=== PATIENT | male | born 1960 | race Caucasian/White ===

== ENCOUNTER 2017-12-16 15:29 | Outpatient (RCR) | payer OTHER ==
[2017-10-22 15:51] VITALS: BP 136/79
--- NOTE | 2017-10-22 18:05 | ONCOLOGY CONSULTATION ---
EVENT DATE: October 22, [address] Evangelist Hall REASON FOR CONSULTATION Evaluation and management of leukocytosis with lymphocytosis and erythrocytosis. HEMATOLOGY HISTORY Patient is a 57-year-old male who is donating his blood nearly every three months since 2013. Patient was found on multiple occasions to have high H and H. He was also having leukocytosis with absolutely lymphocytosis. His lymphocytes were high at 4000 since 2014. Patient denies any constitutional symptoms including fevers, chills, night sweats. His CBC on September 09, 2017 showed white count 16.4, red blood cells 5.84 which is high, hemoglobin 18.5 which is high, hematocrit 51.8 which is high. MCV was normal at 89%. His platelet count was normal at 170,000, but his absolutely lymphocytic count was high at 10.9. PAST MEDICAL HISTORY 1. Bilateral inguinal hernias. 2. Hypertension. 3. Hypercholesterolemia. 4. Seasonal allergies. PAST SURGICAL HISTORY 1. Patient had five back surgeries over the years for disk problem. He has had laminectomy, diskectomy and he has also fusion surgery. 2. Tonsillectomy. SOCIAL HISTORY Patient is single with no children. He works as a assistant property manager. He smokes about a half a pack a day for 25 years. He drinks nearly one drink per week. Denies any abuse of illicit drugs. FAMILY HISTORY Negative for cancer or blood diseases. CURRENT MEDICATIONS 1. Atorvastatin 10 mg daily. 2. Hydrochlorothiazide 12.5 mg daily. 3. Benazepril 40 mg daily. 4. Multivitamin once daily. ALLERGIES No known drug allergies. REVIEW OF SYSTEMS CONSTITUTIONAL: No appetite or weight change. No fever, chills or sweating. No recent infection. HEENT: Ears: No tinnitus or hearing problem. Nose: No nasal discharge or epistaxis. Throat: No sore throat or mouth ulcers. Eyes: No diplopia or visual changes. RESPIRATORY: No shortness of breath. No cough, expectoration or hemoptysis. CARDIOVASCULAR: No chest pain, orthopnea, or paroxysmal nocturnal dyspnea (PND) . No edema. No palpitations. GASTROINTESTINAL: No nausea or vomiting. No diarrhea or constipation. No change in bowel movements. No heartburn or swallowing difficulties. No abdominal pain. No jaundice. No hematemesis, melena or rectal bleeding. GENITOURINARY: No hematuria or dysuria. MUSCULOSKELETAL: The patient has back pain from his back problem and previous surgeries in the past. NEUROLOGICAL: No tingling or numbness in the hands or feet. No headaches or convulsions. HEMATOLOGIC/LYMPHATIC: No bleeding or easy bruising. No weakness or fatigue. No enlarged lymph nodes. SKIN: No skin rash or lumps. PSYCHIATRIC: No anxiety or depression. PHYSICAL EXAMINATION GENERAL: Looks stable. Well-developed, well-nourished, and in no acute distress. VITAL SIGNS: Blood pressure 136/79, pulse 80 per minute, respirations 16 per minute, temperature 98.1, pulse ox 94% on room air. HEENT: Head: Atraumatic. No sinus tenderness to palpation. Eyes: No icterus or conjunctivitis. Mouth and Throat: No oral thrush or mucositis. NECK: Supple. No cervical or supraclavicular lymphadenopathy. LUNGS: Clear to auscultation and percussion bilaterally. HEART: Regular rate and rhythm. No gallops, murmurs, clicks or rubs. ABDOMEN: Soft and lax. No tenderness. No hepatosplenomegaly. No masses. EXTREMITIES: No cyanosis, clubbing or edema. LYMPHATICS: No peripheral lymphadenopathy. NEUROLOGICAL: Conscious, alert and oriented times three. No focal motor or sensory deficits. PSYCHIATRIC: Mood and affect appear normal. SKIN: No skin rash, bruise or purpuric eruption. ASSESSMENT 1. Absolute lymphocytosis documented since 2014. This could be due to an underlying lymphoproliferative disorder like CLL or some sort of low grade lymphoma. Over the years his absolute lymphocytic count increased from 4000 in 2015 and currently it is 10,900 in September 2017. I am planning to proceed with flow cytometry for diagnosis, and if the patient will prove to have CLL/SLL by flow cytometry, I am planning to run his blood for FISH for CLL to know the prognosis of his disease. Patient denies any constitutional symptoms and his platelet count and the hemoglobin are normal. His red blood cells are even above normal. I will see him in two weeks from now after the above tests for further evaluation and management. 2. Erythrocytosis, could be primary or secondary from his smoking. I am planning to run JAK2 mutation analysis and erythropoietin level. JAK2 mutation analysis is positive in 95% of cases of polycythemia vera, while erythropoietin level would be low in polycythemia vera, but high or normal in secondary erythrocytosis. If the patient will prove to have secondary erythrocytosis, I will consider phlebotomy if the hematocrit is above 55%, but if it is due to polycythemia vera, then the target for phlebotomy will be 45%. I explained that to the patient and he is agreeable with the plan of management. The patient currently is donating his blood nearly every three months. PLAN 1. CBC. 2. JAK2 mutation analysis. 3. Erythropoietin level. 4. Flow cytometry of the peripheral blood. 5. Patient to return after the above for further evaluation and management. 6. Patient to contact us for any new concern or complaints. MTDD
[2017-10-26 16:38] LABS: PLATELET COUNT, AUTOMATED 181 K/uL (150-450)
[2017-11-05 15:57] VITALS: BP 121/77
--- NOTE | 2017-11-05 17:47 | ONCOLOGY FOLLOW UP NOTE ---
EVENT DATE: November 05, 2017 DIAGNOSES 1. Chronic lymphocytic leukemia. 2. Secondary erythrocytosis. CHIEF COMPLAINT Patient is here today for followup of his erythrocytosis and lymphocytosis. HEMATOLOGY HISTORY Patient is a 57-year-old male who is donating his blood nearly every three months since 2013. Patient was found on multiple occasions to have high H and H. He was also having leukocytosis with absolutely lymphocytosis. His lymphocytes were high at 4000 since 2014. Patient denies any constitutional symptoms including fevers, chills, night sweats. His CBC on September 09, 2017 showed white count 16.4, red blood cells 5.84 which is high, hemoglobin 18.5 which is high, hematocrit 51.8 which is high. MCV was normal at 89%. His platelet count was normal at 170,000, but his absolutely lymphocytic count was high at 10.9. Flow cytometry of the peripheral blood done on October 23, 2017 came back positive for CD5 positive B-cell lymphoproliferative disorder with phenotype characteristic of chronic lymphocytic leukemia/small lymphocytic lymphoma. JAK2 mutation analysis came back negative for V617F mutation and Exon 12 mutation, while erythropoietin level was normal at 7. HISTORY OF PRESENT ILLNESS Patient is here today for followup of his erythrocytosis and erythrocytosis. He is doing fine currently. He has some urgency of urine. He has lower back pain and he is weak, tired and fatigued. PAST MEDICAL HISTORY 1. Bilateral inguinal hernias. 2. Hypertension. 3. Hypercholesterolemia. 4. Seasonal allergies. PAST SURGICAL HISTORY 1. Patient had five back surgeries over the years for disk problem. He has had laminectomy, diskectomy and he has also fusion surgery. 2. Tonsillectomy. SOCIAL HISTORY Patient is single with no children. He works as a property management supervisor. He smokes about a half a pack a day for 25 years. He drinks nearly one drink per week. Denies any abuse of illicit drugs. FAMILY HISTORY Negative for cancer or blood diseases. CURRENT MEDICATIONS 1. Atorvastatin 10 mg daily. 2. Hydrochlorothiazide 12.5 mg daily. 3. Benazepril 40 mg daily. 4. Multivitamin once daily. ALLERGIES No known drug allergies. REVIEW OF SYSTEMS CONSTITUTIONAL: No appetite or weight change. No fever, chills or sweating. No recent infection. HEENT: Ears: No tinnitus or hearing problem. Nose: No nasal discharge or epistaxis. Throat: No sore throat or mouth ulcers. Eyes: No diplopia or visual changes. RESPIRATORY: No shortness of breath. No cough, expectoration or hemoptysis. CARDIOVASCULAR: No chest pain, orthopnea, or paroxysmal nocturnal dyspnea (PND) . No edema. No palpitations. GASTROINTESTINAL: No nausea or vomiting. No diarrhea or constipation. No change in bowel movements. No heartburn or swallowing difficulties. No abdominal pain. No jaundice. No hematemesis, melena or rectal bleeding. GENITOURINARY: The patient has urgency of urine. MUSCULOSKELETAL: He has lower back pain. NEUROLOGICAL: No tingling or numbness in the hands or feet. No headaches or convulsions. HEMATOLOGIC/LYMPHATIC: No bleeding or easy bruising. He is weak, tired and fatigued. No enlarged lymph nodes. SKIN: No skin rash or lumps. PSYCHIATRIC: No anxiety or depression. PHYSICAL EXAMINATION GENERAL: Looks stable. Well-developed, well-nourished, and in no acute distress. VITAL SIGNS: Blood pressure 121/77, pulse 77 per minute, respirations 16 per minute, temperature 97, pulse ox 95% on room air. HEENT: Head: Atraumatic. No sinus tenderness to palpation. Eyes: No icterus or conjunctivitis. Mouth and Throat: No oral thrush or mucositis. NECK: Supple. No cervical or supraclavicular lymphadenopathy. LUNGS: Clear to auscultation and percussion bilaterally. HEART: Regular rate and rhythm. No gallops, murmurs, clicks or rubs. ABDOMEN: Soft and lax. No tenderness. No hepatosplenomegaly. No masses. EXTREMITIES: No cyanosis, clubbing or edema. LYMPHATICS: No peripheral lymphadenopathy. NEUROLOGICAL: Conscious, alert and oriented times three. No focal motor or sensory deficits. PSYCHIATRIC: Mood and affect appear normal. SKIN: No skin rash, bruise or purpuric eruption. DIAGNOSTIC DATA CBC showed a white count 21.4, hemoglobin 18.6, hematocrit 53.2, platelets 181, 000. Erythropoietin level is 7. JAK2 mutation analysis for V617F mutation and Exon 12 mutation came back negative. Flow cytometry of the peripheral blood came back positive for CD5 positive B-cell lymphoproliferative disorder with phenotype characteristic of chronic lymphocytic leukemia/small lymphocytic lymphoma. ASSESSMENT 1. Chronic lymphocytic leukemia/small lymphocytic lymphoma. Patient presented with lymphocytosis since 2014. Flow cytometry of the peripheral blood done on October 26, 2017 came back positive for CD5 positive B-cell lymphoproliferative disorder with phenotype characteristic of CLL/SLL. I am planning to fun the FISH for CLL to know the prognosis. Given that the patient does have B symptoms , and his hemoglobin and platelet count are within the normal range, I am planning to monitor his blood count every six months. If the patient will double is absolute lymphocytic count in less than six months, I will consider also treatment at that time. I explained that to the patient. The patient is agreeable with the plan of management. 2. Erythrocytosis, most probably secondary in nature due to high altitude and smoking. JAK2 mutation analysis for V617F mutation and Exon 12 mutation came back negative and the erythropoietin level was normal at 7. As his current hematocrit is 53.2%, I am not planning to do a phlebotomy at the moment. I am planning to consider phlebotomy if the hematocrit is above 55%. We are going to monitor his blood count with his visits for CLL. PLAN 1. FISH for CLL. 2. Patient to return in two weeks for further evaluation and management. 3. Consider phlebotomy if the hematocrit is above 55%. 4. Patient to contact us for any new concerns or complaints. [facility]
[2017-11-24 16:14] VITALS: BP 124/74
[~2017-12-16 15:29] MED LIST: ATOR10TA24 PO; BENA40TA53 PO; HYDR-2966 PO; MULT-865 PO; OLM20 PO; TRI40I INTRA-ART; [UNRECOGNIZED DRUG - CODE] INJ
[2017-12-16 15:42] VITALS: BP 120/75
--- NOTE | 2017-12-16 17:54 | ONCOLOGY FOLLOW UP NOTE ---
EVENT DATE: December 16, 2017 DIAGNOSES 1. Chronic lymphocytic leukemia. 2. Secondary erythrocytosis. CHIEF COMPLAINT Patient is here today for followup of his erythrocytosis and lymphocytosis. HEMATOLOGY HISTORY Patient is a 57-year-old male who is donating his blood nearly every three months since 2013. Patient was found on multiple occasions to have high H and H. He was also having leukocytosis with absolute lymphocytosis. His lymphocytes were high at 4000 since 2014. Patient denies any constitutional symptoms including fevers, chills, night sweats. His CBC on September 09, 2017, showed white count 16.4, red blood cells 5.84 which is high, hemoglobin 18.5 which is high, hematocrit 51.8 which is high. MCV was normal at 89%. His platelet count was normal at 170,000, but his absolute lymphocytic count was high at 10.9. Flow cytometry of the peripheral blood done on October 23, 2017, came back positive for CD5 positive B-cell lymphoproliferative disorder with phenotype characteristic of chronic lymphocytic leukemia/small lymphocytic lymphoma. JAK2 mutation analysis came back negative for V617F mutation and exon 12 mutation, while erythropoietin level was normal at 7. FISH for CLL came back positive for trisomy 12, which is considered an intermediate risk category. HISTORY OF PRESENT ILLNESS Patient is here today for followup of his CLL. He is really doing very well currently except for having some bruising. PAST MEDICAL HISTORY 1. Bilateral inguinal hernias. 2. Hypertension. 3. Hypercholesterolemia. 4. Seasonal allergies. PAST SURGICAL HISTORY 1. Patient had five back surgeries over the years for disk problem. He has had laminectomy, diskectomy, and he has also fusion surgery. 2. Tonsillectomy. SOCIAL HISTORY Patient is single with no children. He works as a outside property agent. He smokes about a half a pack a day for 25 years. He drinks nearly one drink per week. Denies any abuse of illicit drugs. FAMILY HISTORY Negative for cancer or blood diseases. CURRENT MEDICATIONS 1. Atorvastatin 10 mg daily. 2. Hydrochlorothiazide 12.5 mg daily. 3. Benazepril 40 mg daily. 4. Multivitamin once daily. ALLERGIES No known drug allergies. REVIEW OF SYSTEMS CONSTITUTIONAL: No appetite or weight change. No fever, chills, or sweating. No recent infection. HEENT: Ears: No tinnitus or hearing problem. Nose: No nasal discharge or epistaxis. Throat: No sore throat or mouth ulcers. Eyes: No diplopia or visual changes. RESPIRATORY: No shortness of breath. No cough, expectoration, or hemoptysis. CARDIOVASCULAR: No chest pain, orthopnea, or paroxysmal nocturnal dyspnea (PND). No edema. No palpitations. GASTROINTESTINAL: No nausea or vomiting. No diarrhea or constipation. No change in bowel movements. No heartburn or swallowing difficulties. No abdominal pain. No jaundice. No hematemesis, melena, or rectal bleeding. GENITOURINARY: The patient has urgency of urine. MUSCULOSKELETAL: He has lower back pain. NEUROLOGICAL: No tingling or numbness in the hands or feet. No headaches or convulsions. HEMATOLOGIC/LYMPHATIC: He bruises easily. He is weak, tired, and fatigued. No enlarged lymph nodes. SKIN: No skin rash or lumps. PSYCHIATRIC: No anxiety or depression. PHYSICAL EXAMINATION GENERAL: Looks stable. Well developed, well nourished, and in no acute distress. VITAL SIGNS: Blood pressure 120/75, pulse 75 per minute, respirations 14 per minute, temperature 97.1, pulse ox 94% on room air. HEENT: Head: Atraumatic. No sinus tenderness to palpation. Eyes: No icterus or conjunctivitis. Mouth and Throat: No oral thrush or mucositis. NECK: Supple. No cervical or supraclavicular lymphadenopathy. LUNGS: Clear to auscultation and percussion bilaterally. HEART: Regular rate and rhythm. No gallops, murmurs, clicks, or rubs. ABDOMEN: Soft and lax. No tenderness. No hepatosplenomegaly. No masses. EXTREMITIES: No cyanosis, clubbing, or edema. LYMPHATICS: No peripheral lymphadenopathy. NEUROLOGICAL: Conscious, alert, and oriented times three. No focal motor or sensory deficits. PSYCHIATRIC: Mood and affect appear normal. SKIN: No skin rash, bruise, or purpuric eruption. DIAGNOSTIC DATA FISH for CLL came back positive for trisomy 12 which is considered intermediate risk. ASSESSMENT 1. Chronic lymphocytic leukemia/small lymphocytic lymphoma. Patient presented with lymphocytosis since 2014. Flow cytometry of the peripheral blood done on October 26, 2017, came back positive for CD5 positive B-cell lymphoproliferative disorder with phenotype characteristic of chronic lymphocytic leukemia/small lymphocytic lymphoma.. FISH for chronic lymphocytic leukemia done on the November came back positive for trisomy 12, which is considered an intermediate risk for chronic lymphocytic leukemia. I had a long time with the patient explaining the FISH result and also about the indications for starting treatment. I am planning to see him again in six months with CBC, chemistry panel, LDH, and uric acid, and the patient was advised to report any B symptoms like drenching night sweats, night fever, or loss of appetite or weight. Other indications for treatment will be doubling of the absolute lymphocytic count within six months or thrombocytopenia less than 100,000 or anemia less than 10 g/dL or big lymph node impinging vital organ. 2. Erythrocytosis, most probably secondary in nature due to high altitude and smoking. JAK2 mutation analysis for V617F mutation and exon 12 mutation came back negative, and the erythropoietin level was normal at 7. His last hematocrit was 53.2%. I will consider phlebotomy if hematocrit is above 55%. PLAN 1. Continued followup. 2. Patient to return in six months with CBC, chem panel, LDH, uric acid. 3. Consider phlebotomy if the hematocrit above 55%. 4. Patient to contact us for any new concerns or complaints. [facility]ED
== END 2017-12-29 09:10 | disposition home or self-care (01) ==
LOC: ONC 15:29
PROVIDERS: ATTEND Internal Medicine Hematology
DX: C91.Z0 Other lymphoid leukemia not having achieved remission (principal); D72.820 Lymphocytosis (symptomatic); D75.1 Secondary polycythemia; I10 Essential (primary) hypertension; E78.00 Pure hypercholesterolemia, unspecified; J30.2 Other seasonal allergic rhinitis; K40.20 Bilateral inguinal hernia, without obstruction or gangrene, not specified as recurrent; F17.210 Nicotine dependence, cigarettes, uncomplicated
CPT/HCPCS: 36415; 81270; 81403; 82668; 85025; 88184; 88185; 88189; 88271; 88275; 88291; 99202; 99212

== ENCOUNTER 2018-06-09 07:40 | Outpatient (RCR) | payer OTHER ==
[2018-06-09 15:18] VITALS: BP 124/82
[2018-06-09 15:46] LABS: PLATELET COUNT, AUTOMATED 181 K/uL (150-450)
[2018-06-09] MEDS ORDERED: TAMS0.4C70 PO (15:53)
--- NOTE | 2018-06-10 03:57 | [facility] ONCOLOGY NOTE ---
EVENT DATE: June 09, 2018 DIAGNOSES 1. Chronic lymphocytic leukemia. 2. Secondary erythrocytosis. CHIEF COMPLAINT Patient is here today for followup of his erythrocytosis and CLL. HEMATOLOGY HISTORY Patient is a 58-year-old male who is donating his blood nearly every three months since 2013. Patient was found on multiple occasions to have high H and H. He was also having leukocytosis with absolute lymphocytosis. His lymphocytes were high at 4000 since 2014. Patient denies any constitutional symptoms including fevers, chills, night sweats. His CBC on September 09, 2017, showed white count 16.4, red blood cells 5.84 which is high, hemoglobin 18.5 which is high, hematocrit 51.8 which is high. MCV was normal at 89%. His platelet count was normal at 170,000, but his absolute lymphocytic count was high at 10.9. Flow cytometry of the peripheral blood done on October 23, 2017, came back positive for CD5 positive B-cell lymphoproliferative disorder with phenotype characteristic of chronic lymphocytic leukemia/small lymphocytic lymphoma. JAK2 mutation analysis came back negative for V617F mutation and exon 12 mutation, while erythropoietin level was normal at 7. FISH for CLL came back positive for trisomy 12, which is considered an intermediate risk category. HISTORY OF PRESENT ILLNESS Patient is here today for followup of his chronic lymphocytic leukemia and erythrocytosis. He is doing fine currently. He has occasional diarrhea. He has some pain in his right shoulder lately. He has also tingling in the right arm, and patient thought this was related to his pain in the right shoulder, but other than that, he is really doing very well and denies any B symptoms. PAST MEDICAL HISTORY 1. Bilateral inguinal hernias. 2. Hypertension. 3. Hypercholesterolemia. 4. Seasonal allergies. PAST SURGICAL HISTORY 1. Patient had five back surgeries over the years for disk problem. He has had laminectomy, diskectomy, and he has also fusion surgery. 2. Tonsillectomy. SOCIAL HISTORY Patient is single with no children. He works as a property management supervisor. He smokes about a half a pack a day for 25 years. He drinks nearly one drink per week. Denies any abuse of illicit drugs. FAMILY HISTORY Negative for cancer or blood diseases. CURRENT MEDICATIONS 1. Atorvastatin 10 mg daily. 2. Hydrochlorothiazide 12.5 mg daily. 3. Benazepril 40 mg daily. 4. Multivitamin once daily. ALLERGIES No known drug allergies. REVIEW OF SYSTEMS CONSTITUTIONAL: No appetite or weight change. No fever, chills or sweating. No recent infection. HEENT: Ears: No tinnitus or hearing problem. Nose: No nasal discharge or epistaxis. Throat: No sore throat or mouth ulcers. Eyes: No diplopia or visual changes. RESPIRATORY: No shortness of breath. No cough, expectoration or hemoptysis. CARDIOVASCULAR: No chest pain, orthopnea, or paroxysmal nocturnal dyspnea (PND). No edema. No palpitations. GASTROINTESTINAL: Patient has occasional diarrhea. GENITOURINARY: No hematuria or dysuria. MUSCULOSKELETAL: He has pain in the right shoulder. NEUROLOGICAL: He has tingling in the right arm area. HEMATOLOGIC/LYMPHATIC: No bleeding or easy bruising. No weakness or fatigued. No enlarged lymph nodes. SKIN: No skin rash or lumps. PSYCHIATRIC: No anxiety or depression. PHYSICAL EXAMINATION GENERAL: Looks stable. Well-developed, well-nourished, and in no acute distress. VITAL SIGNS: Blood pressure 124/82, pulse 74 per minute, respirations 18 per minute, temperature 98.2, pulse oximetry 94% on room air. HEENT: Head: Atraumatic. No sinus tenderness to palpation. Eyes: No icterus or conjunctivitis. Mouth and throat: No oral thrush or mucositis. NECK: Supple. No cervical or supraclavicular lymphadenopathy. LUNGS: Clear to auscultation and percussion bilaterally. HEART: Regular rate and rhythm. No gallops, murmurs, clicks or rubs. ABDOMEN: Soft and lax. No tenderness. No hepatosplenomegaly. No masses. EXTREMITIES: No cyanosis, clubbing or edema. LYMPHATICS: No peripheral lymphadenopathy. NEUROLOGICAL: Conscious, alert and oriented times three. No focal motor or sensory deficits. PSYCHIATRIC: Mood and affect appear normal. SKIN: No skin rash, bruise or purpuric eruption. DIAGNOSTIC DATA CBC showed white count of 21.7, hemoglobin 18, hematocrit 53.3%, and platelet count 181,000. Absolute lymphocytic count of 16.3. Chem panel is totally normal. ASSESSMENT 1. Chronic lymphocytic leukemia/small lymphocytic lymphoma. Patient presented with lymphocytosis since 2014. Flow cytometry of the peripheral blood done on October 26, 2017, came back positive for CD5 positive B-cell lymphoproliferative disorder with phenotype characteristic of chronic lymphocytic leukemia/small lymphocytic lymphoma.. FISH for chronic lymphocytic leukemia done on the November came back positive for trisomy 12, which is considered an intermediate risk for chronic lymphocytic leukemia. Patient is doing very well currently. He denies any B symptoms. His platelet count and hemoglobin and ANC are within the normal range. There is no indication to start treatment for his CLL so far. I am planning to continue followup. I will see him again in six months with CBC, chemistry panel, LDH and uric acid. 2. Erythrocytosis, most probably secondary in nature due to high altitude and smoking. JAK2 mutation for V617F mutation and exon 12 mutation came back negative, and the erythropoietin level was normal at 7. His current hematocrit is 53.3%, which is stable. I will consider phlebotomy if his hematocrit is above 55%. PLAN 1. Continued followup. 2. Patient to return in six months with CBC, chem panel, LDH, uric acid. 3. Consider phlebotomy if hematocrit above 55%. 4. Patient to contact us for any new concerns or complaints. [facility]
== END 2018-07-27 09:04 | disposition home or self-care (01) ==
LOC: ONC 07:40
PROVIDERS: ATTEND Internal Medicine Hematology
DX: C91.10 Chronic lymphocytic leukemia of B-cell type not having achieved remission (principal); D75.1 Secondary polycythemia; F17.210 Nicotine dependence, cigarettes, uncomplicated
CPT/HCPCS: 36415; 82040; 82247; 82310; 82374; 82435; 82565; 82947; 83615; 84075; 84132; 84155; 84295; 84450; 84460; 84520; 84550; 85025; 99212

== ENCOUNTER → 2018-09-20 | Outpatient (CLI) | payer OTHER ==
[~2018-09-20] MED LIST changes: +ATOR20TA65 PO; +HYDR12.561 PO; +TAMS0.4C70 PO
--- NOTE | 2018-09-20 17:59 | RADIOLOGY IMAGING REPORT ---
FACILITY: [facility] - [place], [place] PATIENT NAME: Deandre Holguin : 1960 MR: [id number] V: [id number] EXAM DATE: ORDERING PHYSICIAN: GISELA MARRERO TECHNOLOGIST: Location: [facility] Patient: Deandre Holguin : 1960 Visit/Account:[id number] Date of Sevice: 09/20/2018 SHOULDER MIN 2 VIEWS RIGHT HISTORY: Pain and throbbing when lying on right side. ADDITIONAL HISTORY: None. COMPARISON: None. FINDINGS: 3 views were obtained of the right shoulder. Alignment is anatomic. Joint spaces are well-maintained. There is no evidence of fracture or subluxation. Subacromial space is of normal caliber. There is a downsloping acromion which can cause an impingement type syndrome. Degenerative changes are present i n the AC joint. Clavicle and visualized ribs are unremarkable. There are no soft tissue calcifications. IMPRESSION: 1. No evidence of acute fracture or subluxation. 2. No significant degenerative changes in the glenohumeral joint. Mild degenerative changes present i n the AC joint. 3. Downsloping acromion, this can contribute to an impingement type syndrome, clinically correlate. Report Dictated By: Charlene Desai MD at 09/20/2018 5:53 PM Report E-Signed By: Charlene Desai MD at 09/20/2018 5:54 PM WSN:[id number]
== END ==
LOC: RAD 15:27
PROVIDERS: ATTEND Internal Medicine
DX: S46.911A Strain of unspecified muscle, fascia and tendon at shoulder and upper arm level, right arm, initial encounter (principal)